=== PATIENT | female | born 1940 | race Caucasian/White ===

== ENCOUNTER → 2024-01-16 | Outpatient (CLI) | payer MEDICARE, BC ==
[2024-01-16 19:29] LABS: BUN/Creat Ratio 21.27 Ratio (12.00-20.00); Blood Urea Nitrogen 23.4 mg/dL (9.0-27.0); Calcium 9.7 mg/dL (8.7-10.3); Carbon Dioxide 23.1 mmol/L (21.6-31.8); Chloride 101 mmol/L (96-109); Glucose 137 mg/dL (70-110); Potassium 5.2 mmol/L (3.5-5.5); Sodium 137 mmol/L (135-145)
== END | disposition home or self-care (01) ==
LOC: LABWHC1 12:05
DX: E78.5 Hyperlipidemia, unspecified (principal)
CPT/HCPCS: 36415; 80048

== ENCOUNTER → 2024-11-25 | Outpatient (CLI) | payer MEDICARE, BC ==
--- NOTE | 2024-11-25 21:27 | US ---
EXAMINATION TYPE: US mass soft tissue chest/back DATE OF EXAM: 11/25/2024 COMPARISON: NONE CLINICAL INDICATION: Female, 84 years old with history of R22.31 LOCALIZED SWELLING, MASS AND LUMP, R IGHT UP; Lump on right clavicle. TECHNIQUE: Targeted scanning of the patient's lump FINDINGS: Label Operator notes: Complex area seen at palpable right clavicle measuring 3.5 x 3.5 x 1.8 cm. IMPRESSION: Very heterogeneous area measuring 3.5 cm at the palpable site. A similar but smaller hete rogeneous areas is present on the contralateral side measuring 8 mm. Possible capsular hypertrophy an d synovitis if the lump corresponds to the region of the sternoclavicular joint. CT for further evalu ation and to exclude more aggressive etiologies. [facility], , 11/25/2024 9:24 PM
== END | disposition home or self-care (01) ==
LOC: RADUSWWP 15:50
PROVIDERS: ATTEND Family Medicine
DX: R22.31 Localized swelling, mass and lump, right upper limb (principal)

== ENCOUNTER → 2025-02-22 | Outpatient (CLI) | payer MEDICARE, BC ==
--- NOTE | 2025-02-22 15:36 | US ---
EXAMINATION TYPE: US kidneys/renal and bladder DATE OF EXAM: 02/22/2025 COMPARISON: 11/25/2024 CLINICAL INDICATION: Female, 84 years old with history of N20.0 CALCULUS OF KIDNEY; Patient states sh e had a previous ultrasound at a urology center and a calculus was seen in the left kidney. No sympto ms. TECHNIQUE: Grayscale imaging of the bilateral kidneys and urinary bladder: FINDINGS: EXAM MEASUREMENTS: Right Kidney: 9.5 x 5.4 x 5.2 cm Left Kidney: 11.7 x 5.0 x 5.8 cm Right Kidney: No hydronephrosis or masses seen Left Kidney: Echogenic focus seen measuring 0.8 x 0.6 cm. Isoechoic/slightly hypoechoic, lobulated a nd vascular lesion seen on the inferior pole measuring 5.2 x 4.5 x 4.5 cm. Bladder: wnl Bilateral Jets seen: Yes There is no evidence for hydronephrosis at this point in time. The urinary bladder is anechoic. IMPRESSION: 1. Vascular left inferior renal pole mass concerning for renal cell carcinoma. Complete evaluation w ith cross-sectional imaging MRI and/or CT recommended. 2. Nonobstructing left renal calculus. [facility], , 02/22/2025 3:34 PM
== END | disposition home or self-care (01) ==
LOC: RADUSWWP 14:14
PROVIDERS: ATTEND Urology
DX: N20.0 Calculus of kidney (principal)
CPT/HCPCS: 76770